=== PATIENT | female | born 1940 | race American Indian/Alaskan Native ===

== ENCOUNTER 2019-05-27 08:52 | Outpatient (CLI) | payer MEDICARE ==
--- NOTE | 2019-05-27 15:41 | Mammography Report ---
BILATERAL DIGITAL SCREENING MAMMOGRAMS WITH CAD INDICATION: Screening. COMPARISONS: None available. However, I am told to Dr. Peguero as images from a prior mammogram. FINDINGS: Craniocaudal and mediolateral oblique views of both breasts were obtained using 2-D digital acquisition. In addition to standard review, the examination was analyzed for possible abnormalities using a computer-assisted detection device (iCAD). The breast tissue is heterogeneously dense, which may obscure small masses. Left asymmetries require comparison with the prior mammogram or additional imaging. A left lower biop sy clip. No suspicious calcifications. The right breast is negative. IMPRESSION: Comparison with the previous mammogram is recommended. We will attempt to obtain a prior mammogram fo r comparison. If we do not obtain a prior mammogram within 30 days, a revised report will be issued r ecommending a recall for additional imaging. Please be advised that the patient should not schedule a n appointment for return until adequate time (at least 2 weeks) has passed breast to obtain the prior mammogram. BI-RADS CATEGORY 0: INCOMPLETE - NEED ADDITIONAL IMAGING EVALUATION AND/OR PRIOR MAMMOGRAMS FOR COMP ARISON Information is entered into a reminder system for a target due date for the next mammogram. The resul ts and recommendations were sent to the patient by mail. Signer Name: Nathaniel Romero MD Signed: 05/27/2019 3:37 PM Workstation Name: [id number]
== END 2019-05-27 08:53 | disposition home or self-care (01) ==
LOC: SPVWC 08:52
PROVIDERS: ATTEND Surgery
DX: Z12.31 Encounter for screening mammogram for malignant neoplasm of breast (principal)
CPT/HCPCS: 77067

== ENCOUNTER 2020-06-28 10:01 | Outpatient (CLI) | payer MEDICARE ==
--- NOTE | 2020-06-28 10:49 | Ultrasound Report ---
EXAMINATION: Right Limited Breast Ultrasound, 06/28/2020 INDICATION: Abnormal screening mammogram. Screening recall the right breast COMPARISON: Screening mammogram, 06/06/2020. Diagnostic mammogram, 06/15/2020 FINDINGS: Targeted ultrasound evaluation was performed of the area of interest. Sonographic evaluati on of the right breast at the 9:00 position 3 cm from the nipple demonstrates a hypoechoic mass with irregular margins measuring 1.0 x 0.8 x 0.9 cm. There is no significant associated vascularity. This corresponds to the density seen on the recent mammogram. IMPRESSION: Follow up recommendation: Biopsy BI-RADS Category 4: Suspicious for Malignancy. Irregular right breast mass at the 9:00 position as d escribed which is moderately suspicious for malignancy. Ultrasound-guided biopsy is recommended. A normal or "negative" report should not preclude biopsy or follow-up of a clinically suspicious find ing. Signer Name: Michela Galvez MD Signed: 06/28/2020 10:44 AM Workstation Name: [id number]
== END 2020-06-28 10:02 | disposition home or self-care (01) ==
LOC: SPVWC 10:01
PROVIDERS: ATTEND Surgery
DX: N63.41 Unspecified lump in right breast, subareolar (principal)

== ENCOUNTER 2020-07-06 12:58 | Outpatient (CLI) | payer MEDICARE ==
--- NOTE | 2020-07-06 14:36 | Mammography Report ---
DIGITAL DIAGNOSTIC MAMMOGRAM WITH CAD, -- 07/06/2020 INDICATION: Postbiopsy mammogram following right breast ultrasound-guided biopsy. TECHNIQUE: Digital right mammographic imaging was performed. This examination was interpreted with the benefit of Computer-aided Detection analysis. COMPARISON: Prior mammogram 06/06/2020 FINDINGS: Breast Density: There are scattered areas of fibroglandular density. Postbiopsy mammogram reveals a biopsy clip appropriately positioned at site of previously described f ocal asymmetric density in the 9:00 position of the right breast, middle depth. IMPRESSION: 1. Appropriately positioned biopsy clip following right breast ultrasound-guided biopsy. Follow up recommendation: No recall. Post biopsy imaging. A "normal" or negative report should not discourage follow up or biopsy of a clinically significant f inding. A written summary of these findings will be mailed to the patient. The patient will be entered into a mammography reporting system which will generate a reminder letter for the patient's next appointmen t at the appropriate interval. According to the [employer], yearly mammograms are recommended starting at age 40 and continuing as long as a woman is in good health. Breast MRI is recommended for women with an pako roximately 20-25% or greater lifetime risk of breast cancer, including women with a strong family his tory of breast or ovarian cancer and women who have been treated for Hodgkin's disease. Signer Name: Debra Anna MD Signed: 07/06/2020 2:31 PM Workstation Name: [id number]
--- NOTE | 2020-07-06 16:51 | Ultrasound Report ---
RIGHT BREAST ULTRASOUND GUIDED BIOPSY The procedure was explained to the patient and informed consent obtained. PROCEDURE: Using sonographic guidance, the lesion in the 9:30 position of the right breast was ident ified. 5 mL of 1% buffered lidocaine and 5 mL 1% lidocaine with epinephrine was administered and a s mall skin zhang was made with a scalpel. Using a 14 gauge biopsy device, multiple core biopsy samples were obtained. The specimens were placed in a 10% formalin solution and sent for histologic analysis . A radio opaque marker clip was placed at the biopsy site. Pressure was held on the biopsy site utilizing the sterile 4 x 4 gauze until all bleeding subsided. A gauze dressing was placed over the biopsy site to provide a pressure dressing. Postbiopsy instructio ns were reviewed with the patient and a copy given to her. No immediate complications occurred. INTERPRETATION: Images made real-time during the procedure demonstrate the biopsy device to be appro priately centered within the lesion. Impression: Successful right breast ultrasound-guided biopsy. Pathology pending. Signer Name: Debra Anna MD Signed: 07/06/2020 4:46 PM Workstation Name: [id number]
== END 2020-07-06 12:59 | disposition home or self-care (01) ==
LOC: SPVWC 12:58
PROVIDERS: ATTEND Surgery
DX: N63.11 Unspecified lump in the right breast, upper outer quadrant (principal); R92.8 Other abnormal and inconclusive findings on diagnostic imaging of breast
CPT/HCPCS: 88305

== ENCOUNTER 2020-08-02 11:42 | Outpatient (CLI) | payer MEDICARE ==
--- NOTE | 2020-08-03 09:22 | Magnetic Resonance Report ---
Bilateral breast MR without and with contrast. History: Recently diagnosed right breast malignancy. Comparison: 07/06/2020, 06/28/2020, 06/15/2020, 06/06/2020. Technique: Multiplanar multisequence MR images of the breast were obtained before and after the intra venous administration of intravenous contrast. Post processing analysis and review was performed on a separate computer workstation. Findings: Breast composition is scattered fibroglandular. There is mild background parenchymal enhancement with in both breasts. RIGHT BREAST: Located within the right breast at the 9:00 position is a 10 x 9 x 8 mm lobulated solid enhancing mass. This was biopsied previously and was found to represent invasive carcinoma. The size on MRI would correspond with the size noted on recent ultrasound. No evidence of additional suspicio us findings or evidence to suggest further extent of disease. No involvement of the overlying skin or underlying pectoralis muscle. Postbiopsy changes are noted in the right lateral breast. LEFT BREAST: No enhancing mass, dominant focus, or other abnormal enhancement is identified within th e left breast. No abnormal axillary or internal mammary lymph nodes. Impression: Known biopsy-proven malignancy in the right breast at the 9:00 position measures up to 10 mm. No belinda tional suspicious findings or evidence to suggest further extent of disease. BIRADS 6: Known biopsy proven malignancy. A normal MRI does not exclude the presence of some forms of breast malignancy as literature reports s uggest that some forms of ductal carcinoma in situ or lobular carcinoma, particularly, may not be det ected on MRI. The sensitivity and specificity of MRI for cancers under 5 mm may be reduced. MRI does not replace the recommendation for annual conventional mammographic evaluation and should be used as an adjunct to mammography and physical examination as necessary. Signer Name: Javon Verdugo MD Signed: 08/03/2020 9:17 AM Workstation Name: [id number]
== END 2020-08-02 11:43 | disposition home or self-care (01) ==
LOC: SPVIMAG 11:42
PROVIDERS: ATTEND Surgery
DX: C50.411 Malignant neoplasm of upper-outer quadrant of right female breast (principal)
CPT/HCPCS: A9577; C8908; 77049

== ENCOUNTER 2020-09-02 07:00 | Day surgery (SDC) | payer MEDICARE ==
[~2020-09-02 07:00] MED LIST: ACETAMINOPHEN 500 MG TAB PO NR; LACTATED RINGERS 1,000 ML IV SCH; METHYLENE BLUE 50 MG/10 ML AMP ONE; MIDAZOLAM 2 MG/2 ML INJ IV NR; SODIUM CHLORIDE P/F VIAL 10 ML 0 ML ONE; ceFAZolin/Water 2 GM/20 ML 2 GM/20 ML SYRINGE IV NR; fentaNYL 100 MCG/2 ML INJ IV PRN
[2020-09-02] MEDS ORDERED: ONDANSETRON 4 MG/2 ML INJ ONE (07:33)
[2020-09-02] MEDS ORDERED: ROCURONIUM 50 MG/5 ML INJ IV ONE (07:33)
[2020-09-02] MEDS ORDERED: HYDROmorphone 1 MG/1 ML INJ ONE (07:33)
[2020-09-02] MEDS ORDERED: dexAMETHasone 20 MG/5 ML VIAL ONE (07:33)
[2020-09-02] MEDS ORDERED: LIDOCAINE MPF (2%) 20 MG/1 ML VIAL 5 ML ONE (07:33)
[2020-09-02] MEDS ORDERED: propofoL 200 MG/20 ML VIAL IV ONE (07:33)
[2020-09-02] MEDS ORDERED: LIDOCAINE (1%) 10 MG/1 ML VIAL 20 ML MDV ONE (07:41)
[2020-09-02] MEDS ORDERED: ONDANSETRON 4 MG/2 ML INJ IV PRN (08:39)
[2020-09-02] MEDS ORDERED: fentaNYL 100 MCG/2 ML INJ IV PRN (08:39)
--- NOTE | 2020-09-02 08:39 | Anesthesia Consultation ---
Anesthesia Consult and Med Hx Date of service: 09/02/20 - Airway Anesthetic Teeth Evaluation: Good, Edentulous (upper) ROM Head & Neck: Adequate Mental/Hyoid Distance: Adequate Mallampati Class: Class II Intubation Access Assessment: Probably Good - Pulmonary Exam CTA: Yes - Cardiac Exam Cardiac Exam: RRR - Pre-Operative Health Status ASA Pre-Surgery Classification: ASA3 Proposed Anesthetic Plan: General Nerve Block: PECs - Pulmonary Hx Asthma: Yes (used inhaler this morning) - Cardiovascular System Hx Hypertension: Yes (took metoprolol this morning) Hx Heart Attack/AMI: No Hx Percutaneous Transluminal Coronary Angioplasty (PTCA): No - Central Nervous System CVA: No - Gastrointestinal Hx Gastroesophageal Reflux Disease: Yes (took omeprazole this morning) - Endocrine Hx Renal Disease: No Hx Liver Disease: No Hx Non-Insulin Dependent Diabetes: Yes Hx Thyroid Disease: No - Other Systems Hx Cancer: Yes (breast ca) Hx Obesity: Yes (BMI 34) - Additional Comments Anesthesia Medical History Comments: No hx anesthetic complications.
--- NOTE | 2020-09-02 08:39 | Anesthesia Day of Surgery ---
Anesthesia Day of Surgery - Day of Surgery Patient Examined: Yes Patient H&P Reviewed: Yes Patient is NPO: Yes Beta Blockers: Yes (metoprolol today AM)
[2020-09-02] MEDS ORDERED: dexAMETHasone 4 MG/ML VIAL ONE (08:40)
[2020-09-02] MEDS ORDERED: BUPIVACAINE/PF (0.5%) 5 MG/1 ML 30 ML VIAL INFILTRATI ONE (08:41)
--- NOTE | 2020-09-02 08:56 | Progress Note ---
Regional Anesthesia Block - Regional Anesthesia Block Start Time: 08:44 Stop Time: 08:51 Performed By:: SHELLIE ISABEL Procedure: [Right] Ultrasound Guided PEC Block Pt IDd, consent obtained, time out performed. Pt on monitor + O2 via NC, VS stable, sedation given per pre-op RN. Sterile prep. Landmarks identified with ultrasound. [3]cc skin wheel with 1% lidocaine. Needle advance in plane with ultrasound. Total of [30]cc [0.5]% bupivacaine [w/ epi] injected incrementally with negative aspiration. Pt tolerated procedure well, no immediate complications noted.
[2020-09-02] MEDS ORDERED: SODIUM CHLORIDE 0.9% IRR 1,500 ML BOTTLE IR ONE (10:09)
[2020-09-02] MEDS ORDERED: NEOSTIGMINE 10MG/10 ML INJ MDV ONE (10:28)
[2020-09-02] MEDS ORDERED: GLYCOPYRROLATE 0.4 MG/2 ML INJ ONE (10:28)
[2020-09-02] MEDS ORDERED: PHENYLEPHRINE/NS 1,000 MCG/10 ML SYRINGE (OR USE) IV ONE (10:34)
[2020-09-02] MEDS ORDERED: NEOMY 40 MG/POLYMYXIN B 200,000 UNITS/ML (GU) AMPULE IR ONE ×2 (11:37→11:48)
[2020-09-02] MEDS ORDERED: ePHEDrine SULFATE 50 MG/1 ML INJ ONE (11:38)
--- NOTE | 2020-09-02 12:22 | Mammography Report ---
RIGHT BREAST NEEDLE LOCALIZATION USING MAMMOGRAPHIC GUIDANCE The procedure was explained to the patient and informed consent obtained. PROCEDURE: Using 5 mL of 1% lidocaine, a 25 gauge needle and mammographic guidance, the right breast nodule and clip were localized with standard needle/wire technique. There were no immediate complica tions. INTERPRETATION: 3 images made during the procedure demonstrate the needle and wire to be properly po sitioned. A surgical specimen radiograph was provided which demonstrates complete removal of the nodu le, clip, and wire. IMPRESSION: 1. Successful right breast lesion localization as described above. 2. Satisfactory appearance of the surgical specimen. Signer Name: Barron Yang MD Signed: 09/02/2020 12:17 PM Workstation Name: [id number]
--- NOTE | 2020-09-02 12:24 | Operative Report ---
Operative Report Operative Report: Operative Report: July 06, 2020 Preoperative diagnosis: Right breast cancer of the upper outer quadrant Postoperative diagnosis: Same Procedure: Right breast needle localization partial mastectomy of the upper outer quadrant with SLNB and placement of BioZorb marker Surgeon: Alaina Peguero MD Aircraft Maintenance Manager: Cindy Multani MD Anesthesia: General Findings: Right wire and clip present within radiograph specimen; x3 SLNs; placement of BioZorb marker 2x2 cm [id number] Complications: None EBL: Less than 50 cc Disposition: PACU in good condition Indications for operative procedure: This is an 80 year old lady with newly diagnosed right breast cancer of the upper outer quadrant, Stage IA [id number] ER/NE positive (9:00 position). Recommendations are to proceed with breast conservation. Radiology to place wire at location of cancer. She understands the role of adjuvant radiation therapy and Oncotype DX will be obtained by medical oncology. She wished to proceed with the above procedure. Procedure in detail: The patient was taken to radiology for wire placement for localization known area of cancer. Anesthesia placed right pectoral block. Patient was then taken to the operating room. Gen. anesthesia was administered. The right nipple was injected with radioisotope. Right breast and axilla were prepped and draped in the normal sterile operative fashion. The wire was identified. Timeout was performed. Gamma probe was inserted into the axilla. The area of hot spot was identified. A right axillary incision was made with a 15 blade knife with dissection taken down to the subcutaneous tissues. The axillary fascia was opened with the Bovie cautery. 3 SLNs were identified and dissected free. All remaining counts were less than 10% of the highest count. Lymph node was sent to pathology for permanent processing. Hemostasis was obtained in the right axillary cavity. Axillary cavity was appropriately irrigated and suctioned. Hemostasis was noted. Axillary fascia was approximated and closed using interrupted 3-0 Vicryl and the skin brought together and closed using a running 4-0 Monocryl followed by skin affix. Attention was then taken towards the right breast. Lateral breast incision around 9:00 position was made with a 15 blade knife and dissection taken down to subcutaneous tissues. First began raising of the lateral flap with removal of the wire from the skin with dissection taken posteriorly to the pectoralis muscle, followed by raising of medial flap, superior flap and inferior flap with all flaps taken past the area of known malignancy and then posteriorly down to the pectoralis muscle. The breast area of concern was appropriately removed posteriorly from the pectoralis muscle with the aid of the Bovie cautery. The wire was not encountered. Specimen was marked and then sent to pathology and radiology; radiograph specimen with wire and clip present. Breast cavity was irrigated and hemostasis was obtained. Then proceeded with placement of BioZorb marker lot [id number]. The posterior deep breast tissues were then mobilized to approximate and cover the area of the defect of at least 5 cm. The posterior deep breast tissues were approximated and closed using interrupted 3-0 Vicryl. The BioZorb of 2x2 centimeters was then sutured into place using interrupted 2-0 PDS, placing 4 sutures. Anterior breast tissue were then approximated and closed using interrupted 3-0 Vicryl. The BioZorb was not easily palpable. The subcutaneous tissues were then approximated and closed using interrupted 3-0 Vicryl followed by closing of the skin with a running 4-0 Monocryl and skin affix. The patient tolerated surgery very well and she was awaken from anesthesia without any complication and transported to PACU in good condition.
--- NOTE | 2020-09-02 12:27 | Short Stay Summary ---
Short Stay Documentation Date of service: 09/02/20 - History H&P: obtained from office - Allergies and Medications Current Medications: Allergies No Known Allergies Allergy (Unverified 08/26/20 17:26) Home Medications Medication Instructions Recorded Confirmed Last Taken Type Albuterol Sulfate [Albuterol 0.63% 0.63 mg IH TID PRN 08/30/20 08/30/20 Unknown History NEBS] Aspirin [Adult Aspirin] 81 mg PO DAILY 08/30/20 09/02/20 08/28/20 08:00 History AtorvaSTATin [Lipitor] 20 mg PO QHS 08/30/20 09/02/20 09/01/20 20:00 History Cholecalciferol Vit D3 [Vitamin D3 8,000 unit PO QDAY 08/30/20 09/02/20 09/01/20 08:00 History 1,000 UNIT TAB] Loratadine [Claritin] 10 mg PO BID 08/30/20 09/02/20 09/01/20 08:00 History Losartan [Cozaar] 100 mg PO QDAY 08/30/20 09/02/20 09/01/20 08:00 History Metformin HCl [metFORMIN] 1,000 mg PO BID 08/30/20 09/02/20 09/01/20 20:30 History Metoprolol [Lopressor TAB] 50 mg PO DAILY 08/30/20 09/02/20 09/02/20 06:00 History Omeprazole 20 mg PO DAILY PRN 08/30/20 09/02/20 09/02/20 06:00 History Sitagliptin Phosphate [Januvia] 100 mg PO DAILY 08/30/20 09/02/20 09/01/20 08:00 History glipiZIDE [Glucotrol] 5 mg PO QPM 08/30/20 09/02/20 09/01/20 19:00 History glipiZIDE [Glucotrol] 10 mg PO QAM 08/30/20 09/02/20 09/01/20 08:00 History hydroCHLOROthiazide [HCTZ] 25 mg PO QDAY 08/30/20 09/02/20 09/01/20 08:00 History cephALEXin [Keflex] 500 mg PO Q12HR #14 cap 09/02/20 Unknown Rx oxyCODONE /ACETAMINOPHEN [Percocet 1 tab PO Q6HR PRN #20 tablet 09/02/20 Unknown Rx 5/325] Active Medications Acetaminophen (Acetaminophen 500 Mg Tab) 1,000 mg PO PREOP NR Stop: 09/02/20 21:00 Last Admin: 09/02/20 08:40 Dose: 1,000 mg Documented by: Fentanyl (Fentanyl 100 Mcg/2 Ml Inj) 100 mcg IV ONCE PRN PRN Reason: sedation for nerve block Stop: 09/02/20 21:00 Last Admin: 09/02/20 08:46 Dose: 50 mcg Documented by: Fentanyl (Fentanyl 100 Mcg/2 Ml Inj) 50 mcg IV Q5MIN PRN PRN Reason: Pain , Severe (7-10) Cefazolin Sodium (Ancef/Sterile Water 2 Gm/20 Ml) 2 gm in 20 mls @ 80 mls/hr IV PREOP NR; Protocol Stop: 09/02/20 23:00 Lactated Ringer's (Lactated Ringers) 1,000 mls @ 100 mls/hr IV DIRECT CORRINA Stop: 09/02/20 23:59 Last Admin: 09/02/20 08:30 Dose: 100 mls/hr Documented by: Midazolam HCl (Midazolam 2 Mg/2 Ml Inj) 2 mg IV PREOP NR Stop: 09/02/20 21:00 Last Admin: 09/02/20 08:45 Dose: 2 mg Documented by: Ondansetron HCl (Ondansetron 4 Mg/2 Ml Inj) 4 mg IV ONCE PRN PRN Reason: Nausea And Vomiting - Brief post op/procedure progress note Date of procedure: 09/02/20 Pre-op diagnosis: Right breast cancer upper outer quadrant Post-op diagnosis: same Procedure: Right breast needle localization partial mastectomy with SLNB Anesthesia: GETA Findings: right wire and clip present; x3 slns Surgeon: PEREZ TALLEY Estimated blood loss: minimal Pathology: list (x3 slns, revised post margin; right lumpectomy) Specimen disposition: to lab Condition: stable - Disposition Condition at discharge: Good Disposition: DC-01 TO HOME OR SELFCARE Short Stay Discharge Plan Activity: other (no heavy lifting) Diet: regular Wound: keep clean and dry (wear breast binder; may shower in 48 hours; no baths; no heavy lifting) Follow up with: PEREZ TALLEY MD [Staff Physician] - 7 Days Prescriptions: cephALEXin [Keflex] 500 mg PO Q12HR #14 cap oxyCODONE /ACETAMINOPHEN [Percocet 5/325] 1 tab PO Q6HR PRN #20 tablet PRN Reason: Pain
--- NOTE | 2020-09-02 13:25 | Post Anesthesia Evaluation ---
- Post Anesthesia Evaluation Patient Participated: Yes Airway Patent: Yes Stable Respiratory Function: Yes Nausea/Vomiting: No Temp > 96.8F: Yes Pain Manageable: Yes Adequeate Hydration: Yes Anesthesia Complications: No
[2020-09-02 13:36] VITALS: BP 137/68
== END 2020-09-02 13:35 | disposition home or self-care (01) ==
LOC: OR 07:00
PROVIDERS: ATTEND Surgery
DX: C50.411 Malignant neoplasm of upper-outer quadrant of right female breast (principal); Z20.828 Contact with and (suspected) exposure to other viral communicable diseases; I89.8 Other specified noninfective disorders of lymphatic vessels and lymph nodes; E78.00 Pure hypercholesterolemia, unspecified; I10 Essential (primary) hypertension; J45.909 Unspecified asthma, uncomplicated; K21.9 Gastro-esophageal reflux disease without esophagitis; E66.9 Obesity, unspecified; E11.9 Type 2 diabetes mellitus without complications; Z98.890 Other specified postprocedural states; Z79.899 Other long term (current) drug therapy; Z79.82 Long term (current) use of aspirin; Z79.84 Long term (current) use of oral hypoglycemic drugs; Z90.710 Acquired absence of both cervix and uterus; Z98.42 Cataract extraction status, left eye; Z98.41 Cataract extraction status, right eye; Z90.49 Acquired absence of other specified parts of digestive tract; Z68.34 Body mass index [BMI] 34.0-34.9, adult; Z17.1 Estrogen receptor negative status [ER-]
CPT/HCPCS: 19281; 19301; 36415; 38525; 38792; 76098; 78800; 82947; 82962; 84132; 88307; 88333; A4648; A9541; J0690; J1100; J1170; J2250; J2370; J2405; J2704; J2710; J3010; J7120; U0003; 64450; 78195; 88341; 88342; Q9968

== ENCOUNTER 2021-03-09 09:18 | Outpatient (CLI) | payer MEDICARE ==
--- NOTE | 2021-03-09 11:26 | Mammography Report ---
DIGITAL DIAGNOSTIC MAMMOGRAM WITH CAD CONVENTIONAL, 03/09/2021 CLINICAL INFORMATION / INDICATION: Patient has a history of right breast cancer status post lumpectom y in August 2020. Patient has no current complaints. PERSONAL HX OF MALIGNANT NEOPLASM OF BREAST TECHNIQUE: Digital bilateral mammographic imaging was performed. Spot compression views were obtaine d. This examination was interpreted with the benefit of Computer-aided Detection analysis. COMPARISON: Prior mammograms 06/06/2020 and 05/27/2019 FINDINGS: Breast Density: The breasts are heterogeneously dense, which may obscure small masses. No dominant mass, suspicious calcifications or architectural distortion in either breast. There is new benign postlumpectomy change seen in the upper outer quadrant of the right breast, and n ew radiation change of the right breast. A questioned asymmetric density in the subareolar right melanie st does not persist on spot compression views and is compatible with overlapping fibroglandular tissu e. IMPRESSION: 1. New benign postsurgical and posttreatment change of the right breast. No suspicious mammographic a bnormality identified. Follow up recommendation: Routine yearly BI-RADS Category 2: Benign. A "normal" or negative report should not discourage follow up or biopsy of a clinically significant f inding. A written summary of these findings will be mailed to the patient. The patient will be entered into a mammography reporting system which will generate a reminder letter for the patient's next appointmen t at the appropriate interval. According to the [employer], yearly mammograms are recommended starting at age 40 and continuing as long as a woman is in good health. Breast MRI is recommended for women with an pako roximately 20-25% or greater lifetime risk of breast cancer, including women with a strong family his tory of breast or ovarian cancer and women who have been treated for Hodgkin's disease. Signer Name: Debra Anna MD Signed: 03/09/2021 11:22 AM Workstation Name: [email or web address]
== END 2021-03-09 09:19 | disposition home or self-care (01) ==
LOC: SPVWC 09:18
PROVIDERS: ATTEND Surgery
DX: R92.8 Other abnormal and inconclusive findings on diagnostic imaging of breast (principal); N64.9 Disorder of breast, unspecified; Z85.3 Personal history of malignant neoplasm of breast
CPT/HCPCS: 77066